=== PATIENT | male | born 1955 | race Caucasian/White ===

== ENCOUNTER 2018-09-07 11:40 | Day surgery (SDC) | payer MEDICARE, OTHER ==
--- NOTE | 2018-09-07 08:53 | HP ---
DATE OF SURGERY: 09/07/2018 HISTORY OF PRESENT ILLNESS: The patient is a 63 year-old with a raised scalp lesion increasing in size. He desires excisional biopsy. PAST MEDICAL HISTORY: He denies any chronic illnesses. PAST SURGICAL HISTORY: Cholecystectomy in the past. MEDICATIONS: None. ALLERGIES: NKDA. FAMILY HISTORY: Negative in regards to this problem. SOCIAL HISTORY: No smoking or alcohol abuse. REVIEW OF SYSTEMS: Twelve systems reviewed. No chest pain or palpitations other systems negative or noncontributory as above and per preadmission questionnaire. PHYSICAL EXAMINATION: GENERAL: No acute distress. HEENT: Sclerae nonicteric. On the scalp he has a raised lesion whether cyst or other nodule unclear. It seems to be a cyst. NECK: No JVD. CHEST: Clear to auscultation. CVS: Regular rate and rhythm. ABDOMEN: Soft. EXTREMITIES: No significant edema. NEURO: Alert, moving extremities symmetrically. No gross motor deficits noted. IMPRESSION: Enlarging scalp lesion or cyst. I feel the patient will benefit from excisional biopsy. Risks and benefits explained in detail including but not limited to bleeding or infection, risk of wound dehiscence possibly requiring packing or healing by secondary intent, possibility that given the size and difficult to close, small chance to require flap or skin graft or healing by secondary intent. He understands as well as general risk of anesthesia, deep venous thrombosis, pulmonary embolism or pneumonia but not limited to. 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 He understands what we excise if the path ends up being benign likely will not recur but could get a similar cyst or nodule adjacent to or elsewhere on the scalp or body. He understands and agrees to the planned procedure. We will proceed with excisional biopsy of scalp cyst possible graft or flap as an outpatient.
[~2018-09-07 11:40] MED LIST: Lactated Ringers 1,000 ML IV ONE; Lactated Ringers 1,000 ML IV SCH; MINERAL OIL LIGHT 10 ML FOR SURGERY ONE; Sensorcaine 0.25% 10 ML ONE
[2018-09-07] MEDS ORDERED: DIPRIVAN 200 MG/20 ML IV ONE (11:41)
[2018-09-07] MEDS ORDERED: SUBLIMAZE 100 MCG/2 ML IV ONE (11:41)
[2018-09-07] MEDS ORDERED: Versed 2 MG/2 ML Injection IV ONE (11:41)
[2018-09-07] MEDS ORDERED: KEFZOL 1 GM ONE (14:42)
[2018-09-07] MEDS ORDERED: Lactated Ringers 1,000 ML IV ONE (14:46)
--- NOTE | 2018-09-07 15:49 | OP ---
SURGERY DATE/TIME: 09/07/2018 1427 PREOPERATIVE DIAGNOSIS: Enlarging scalp cyst. POSTOPERATIVE DIAGNOSIS: Enlarging scalp cyst. PROCEDURE: Excisional biopsy of enlarging scalp cyst approximately 1.7 cm with margins. SURGEON: Dr. Partha Beatty. ANESTHESIA: General. ESTIMATED BLOOD LOSS: Minimal. INDICATIONS: As noted above. Risks and benefits explained in detail and not limited to and consent obtained. DESCRIPTION OF PROCEDURE AND FINDINGS: The patient is taken to the operating room. His scalp area site had been confirmed and marked. After official time out and no disagreement with planned procedure he was prepped and draped in usual sterile fashion after general anesthesia induced. 0.25% Marcaine local injected along the area including spindle-shaped segment of skin overlying the top of this enlarged cystic nodule. Dissection carried down and circumferentially around it. It measured a good 1.7 cm in size dissecting off the underlying fascia and passed off. There was no evidence of any residual cyst or nodule material in the wound. Good hemostasis noted. Some pin point cautery with needle point cautery at low setting. Good hemostasis noted. It was then closed with interrupted vertical mattress of 3-0 Prolene, some antibiotic ointment and sterile dressing applied. The patient tolerated the procedure well. He was transferred to the recovery room in stable condition. There were no immediate complications. Findings discussed with the family out in waiting area.
[2018-09-07 16:42] VITALS: BP 121/81; PULSE 59; O2SAT 98
== END 2018-09-07 16:50 | disposition home or self-care (01) ==
LOC: SDC 11:40
PROVIDERS: ATTEND Surgery
DX: L72.11 Pilar cyst (principal); R20.8 Other disturbances of skin sensation
CPT/HCPCS: 88305; 94250; J0690; J2250; J2704; J3010; A9270-GY

== ENCOUNTER 2021-09-03 09:34 | Day surgery (SDC) | payer MEDICARE, OTHER ==
[2021-09-03] MEDS ORDERED: Lactated Ringers 1,000 ML IV SCH (10:00)
[2021-09-03] MEDS ORDERED: Lactated Ringers 1,000 ML IV ONE (10:08)
[2021-09-03] MEDS ORDERED: Versed 2 MG/2 ML Injection ONE (11:31)
[2021-09-03] MEDS ORDERED: DIPRIVAN 200 MG/20 ML IV ONE ×2 (11:54)
[2021-09-03 12:38] VITALS: O2SAT 94
[2021-09-03 12:41] VITALS: PULSE 68
[2021-09-03 13:01] VITALS: BP 111/80
--- NOTE | 2021-09-03 13:40 | HP ---
DATE OF SURGERY: 09/03/2021 HISTORY OF PRESENT ILLNESS: The patient is a 66-year-old who over the past year increased symptoms of choking, problems with meat not going down upper esophagus, slight dysphagia of unclear etiology. I feel he would benefit from EGD possible biopsy possible dilatation. PAST MEDICAL HISTORY: He denies any chronic illnesses. PAST SURGICAL HISTORY: Denies esophageal surgery before. MEDICATIONS: None. ALLERGIES: NKDA. FAMILY HISTORY: Negative for esophageal cancer. SOCIAL HISTORY: No smoking. He does drink some alcohol. REVIEW OF SYSTEMS: Fourteen systems reviewed per admission assessment. Negative or noncontributory as above and per preadmission questionnaire. PHYSICAL EXAMINATION: GENERAL: No acute distress. HEENT: Sclerae nonicteric. NECK: No JVD. CHEST: Equal excursion, nonlabored breathing. CVS: Regular rate and rhythm. ABDOMEN: Soft. No peritoneal signs. EXTREMITIES: No significant edema. NEURO: Alert, oriented, moving extremities symmetrically. PSYCH: Appropriate mood and affect. IMPRESSION: Will proceed with EGD possible biopsy possible dilatation as an outpatient. Risks and benefits explained in detail including but not limited to bleeding or infection, risk of bowel injury or perforation possibly requiring open procedure, risk of missed or nondiagnosis or incomplete exam possibly requiring other studies, possibility if dilatation does improve his swallowing may need it repeated again down the road. General risk of anesthesia or sedation, risk of aspiration. He also understands possibility that if it fails to improve may need further work up and/or studies or referral as this could more of a functional, neurologic problem or mechanical and dilatation may not improve his situation.
--- NOTE | 2021-09-03 14:16 | OP ---
SURGERY DATE/TIME: 09/03/2021 1137 PREOPERATIVE DIAGNOSIS: Dysphagia upper esophagus. POSTOPERATIVE DIAGNOSES: 1) Mild duodenitis. 2) Mild hemorrhagic gastritis. 3) Distal esophagitis with small raised inflammation area gastric site of gastroesophageal junction. 4) Symptomatic proximal esophageal narrowing and spasm. 5) ASA Class II. PROCEDURES: 1) EGD with cold biopsy of small bowel to evaluate for path. 2) Cold biopsy antrum to evaluate for Helicobacter pylori. 3) Cold biopsy of raised inflammation area gastric site of the gastroesophageal junction. 4) Cold biopsy distal esophagus to evaluate for esophagitis versus early Peña's, path pending. 5) Proximal esophageal balloon dilatation (size 20 balloon dilator). SURGEON: Dr. Partha Beatty. ANESTHESIA: MAC. ESTIMATED BLOOD LOSS: Minimal. INDICATIONS: As noted above. Risks and benefits explained in detail and not limited to and consent obtained. DESCRIPTION OF PROCEDURE AND FINDINGS: The patient is taken to the endoscopy room. MAC anesthesia induced. After official time out and no disagreement with planned procedure, a bite block positioned. Video gastroscope passed down the larynx. He had some little bit of erythema. In the proximal esophagus there was some narrowing spasm without any obvious lesion to biopsy. The scope was able to be passed through here but given his symptoms here, it was felt that he would benefit from dilatation. The scope passed back down into the stomach to the patent pylorus to the third portion of the duodenum. Third, second and first portions of duodenum were inspected. The first and second portion had some mild duodenitis. No gross ulcers. Cold biopsy taken to evaluate for path. Good hemostasis noted. Scope pulled back in the stomach. He did have some gastric erythema with a little petechial hemorrhage consistent with some mild hemorrhagic gastritis. No gross ulcers. No gross masses. On retroflex the gastroesophageal junction snug against the scope. No signs of any significant hiatal hernia visible endoscopically. The scope was straightened and pulled back to the gastroesophageal junction. Random cold biopsy had been taken of the antrum for Helicobacter pylori. The scope pulled back to gastroesophageal junction about 40 cm. There was a little bit of raised area of inflammatory on the gastric side of gastroesophageal junction. A couple of cold biopsies were taken. Hemostasis noted. Otherwise he had a short segment of distal esophagitis. Cold biopsy taken to evaluate for path versus early Peña's versus inflammation, path pending. The remainder of the esophagus no obvious masses. Again, there was a proximal esophageal narrowing and spasm. Given his symptoms it was felt this warranted trial of dilatation. The scope was then passed back down into the stomach. Balloon dilator carefully inserted and then pulled back up to the proximal esophageal narrowed area where it was carefully inflated first stage for 45 seconds, second stage 45 seconds, final stage size 20 balloon dilator for 2 minutes. The balloon was then decompressed and withdrawn. The scope much more easily passed through there. There were no signs of any full thickness issues or injury secondary to dilatation. The patient tolerated the procedure well. There were no immediate complications. Findings discussed with the family out in the waiting area. I will see him back in the office to go over path results next week.
== END 2021-09-03 13:30 | disposition home or self-care (01) ==
LOC: SDC 09:34
PROVIDERS: ATTEND Surgery
DX: K22.2 Esophageal obstruction (principal); K29.80 Duodenitis without bleeding; K29.61 Other gastritis with bleeding; K20.90 Esophagitis, unspecified without bleeding; K22.4 Dyskinesia of esophagus
CPT/HCPCS: 88305; J2250; J2704

== ENCOUNTER 2023-03-10 08:36 | Day surgery (SDC) | payer MEDICARE, OTHER ==
--- NOTE | 2023-03-10 07:48 | HP ---
AMENDED REPORT: DATE OF SURGERY: 03/10/2023 HISTORY OF PRESENT ILLNESS: The patient is a 67-year-old last colonoscopy ten years ago. No bloody stools. No change in bowel movement. No new pain. Family history negative for colon cancer. PAST MEDICAL HISTORY: Depression. Sinus infections. He wears corrective lenses. Fractured skull from fall as a child. PAST SURGICAL HISTORY: Colonoscopy. Cholecystectomy. EGD with dilatation in the past. Hernia repair. MEDICATIONS: Aspirin, vitamin D3, fish oil, Flomax. ALLERGIES: NKDA. FAMILY HISTORY: Negative for colon cancer. SOCIAL HISTORY: No smoking. Occasional alcohol use. REVIEW OF SYSTEMS: Fourteen systems reviewed. No chest pain or palpitations. Other systems negative or noncontributory as above and per preadmission questionnaire. PHYSICAL EXAMINATION: Height 5'8". BMI 30.4. GENERAL: No acute distress. HEENT: Sclerae nonicteric. EOMI. Oropharynx mucous membranes moist. NECK: No JVD. CHEST: Equal excursion, nonlabored breathing. CVS: Regular rate and rhythm. ABDOMEN: Soft. Diastasis recti. No significant hernia at this time. No peritoneal signs. EXTREMITIES: No significant edema. NEURO: Alert, oriented, moving extremities symmetrically. RECTAL: Deferred timed to endoscopy exam. PSYCH: Appropriate mood and affect. SKIN: Dry. IMPRESSION: The patient is in need of follow up screening colonoscopy. I feel he is a candidate. He was shown the risk sheet, explained the procedure in detail including but not limited to risk of bleeding or infection, risk of bowel injury or perforation possibly requiring further procedure, risk of missed or nondiagnosis or incomplete exam possibly requiring barium enema, other studies or procedures, general risk of anesthesia or sedation, risk of bowel prep but not limited to, consent obtained. Will proceed with outpatient follow up screening colonoscopy.
[2023-03-10] MEDS ORDERED: Lactated Ringers 1,000 ML IV SCH (09:00)
[2023-03-10] MEDS ORDERED: Xylocaine-Mpf 2% 5 Ml Vial ONE (10:35)
[2023-03-10] MEDS ORDERED: DIPRIVAN 200 MG/20 ML IV ONE (10:35)
[2023-03-10] MEDS ORDERED: Versed 2 MG/2 ML Injection ONE (10:35)
--- NOTE | 2023-03-10 11:58 | OP ---
SURGERY DATE/TIME: 03/10/2023 1021 PREOPERATIVE DIAGNOSIS: Need for screening colonoscopy. POSTOPERATIVE DIAGNOSES: 1) ASA Class III. 2) Mild diverticulosis left colon. 3) Small polyp sigmoid colon and rectum. 4) Good bowel prep. 5) Withdrawal time approximately 12 minutes. PROCEDURES: 1) Colonoscopy to cecum. 2) Hot snare polypectomy 3.5 mm rectal polyp. 3) Hot biopsy polypectomy of early polyps versus hyperplastic lesions x2 in the sigmoid colon and additional one in the rectum x1. SURGEON: Dr. Partha Beatty. ANESTHESIA: MAC. ESTIMATED BLOOD LOSS: Minimal. INDICATIONS: As noted above. Risks and benefits explained in detail but not limited to and consent obtained. DESCRIPTION OF PROCEDURE AND FINDINGS: The patient is taken to the endoscopy room. MAC anesthesia induced. After official time out and no disagreement with planned procedure, digital rectal exam did not reveal any rectal masses. Video colonoscope inserted and passed up through the tortuous sigmoid, descending and transverse colon. With the external pressure the scope passed down to the cecum. Appendiceal orifice and ileocecal valve well visualized and photo documented. Prep overall was good. Minimal liquidy stool. The scope is carefully withdrawn over the next twelve minutes. No signs of any large polyps, masses or obstructing lesions. He had a few small diverticula in the left colon. He had a small, very vague raised area early polyp versus hyperplastic lesion in the sigmoid colon x2 removed with hot biopsy forceps, one removed with hot biopsy forceps in the distal rectum. In the mid to upper rectum, there is a 3.5 mm pedunculated polyp removed with hot snare polypectomy. Good hemostasis noted. Specimens retrieved. The scope is withdrawn. The patient tolerated the procedure well. Good prep. Withdrawal time had been at least 12 minutes. Findings discussed with the family out in the waiting area. I will see him back in the office in a week to go over the biopsy results.
[2023-03-10 11:59] VITALS: BP 112/76; PULSE 60; O2SAT 96
== END 2023-03-10 12:13 | disposition home or self-care (01) ==
LOC: SDC 08:36
PROVIDERS: ATTEND Surgery
DX: Z12.11 Encounter for screening for malignant neoplasm of colon (principal); K57.30 Diverticulosis of large intestine without perforation or abscess without bleeding; D12.5 Benign neoplasm of sigmoid colon; K62.1 Rectal polyp
CPT/HCPCS: J2250; J2704